=== PATIENT | male | born 1970 | race Caucasian/White ===

== ENCOUNTER 2019-03-25 14:37 | Emergency (ER) | payer MEDICAID ==
[~2019-03-25] VITALS: Ht 172.7 cm; Wt 98.9 kg
[2019-03-25 14:55] VITALS: Ht 172.7 cm; Wt 98.9 kg
[2019-03-25 15:19] LABS: BASOPHIL % 0.3 % (0-2); PLATELET COUNT 208 x10^3mcL (130-400)
[2019-03-25 15:21] LABS: CALCIUM 9.2 mg/dL (8.5-10.1); CARBON DIOXIDE 30.1 mmol/L (21-32); CHLORIDE SERUM 106 mmol/L (98-107); CREATININE SERUM 0.9 mg/dL (0.7-1.3); GFR1 > 60 mL/min; GLUCOSE SERUM 86 mg/dL (74-106); POTASSIUM SERUM 4.5 mmol/L (3.5-5.1); SODIUM SERUM 142 mmol/L (136-145)
[2019-03-25 15:27] LABS: ALBUMIN 4.6 g/dL (3.4-5.0); ALKALINE PHOSPHATASE 95 U/L (46-116); ALT/SGPT 90 U/L (16-63); AST/SGOT 40 U/L (15-37); BILIRUBIN TOTAL 0.66 mg/dL (0.20-1.00)
[2019-03-25 15:28] LABS: TOTAL PROTEIN, SERUM 8.6 g/dL (6.4-8.2)
[2019-03-25 19:00] VITALS: BP 110/78
== END 2019-03-25 19:00 | disposition home or self-care (01) ==
LOC: ED 14:37
DX: R07.89 Other chest pain (principal)
CPT/HCPCS: 36415; Q0092